=== PATIENT | female | born 1990 | race Caucasian/White ===

== ENCOUNTER 2017-01-09 17:36 | Emergency (ER) | payer OTHER ==
[2017-01-09] MEDS ORDERED: Nitroglycerin 0.4 MG TAB (25 Tab Bottle) ONE (17:48)
[2017-01-09 18:05] LABS: #Basophils 0.1 thou/uL (0.0-0.2); #Eosinphils 0.2 thou/uL (0.0-0.7); #Lymphocytes 2.2 thou/uL (1.20-3.40); #Neutrophils 8.5 thou/uL (1.40-6.50); %Basophils 0.7 % (0.0-1.0); %Lymphocytes 18.6 % (21.0-51.0); %Monocytes 8.7 % (0.0-10.0); %Neutrophils 70.1 % (42.0-75.0); Hemoglobin 13.7 g/dL (12.0-16.0); Mean Corpuscular HGB CONC 32.9 g/dL (32.0-36.0); Mean Corpuscular Hemoglobin 28.3 pg (27.0-31.0); Mean Platelet Volume 6.1 fL (7.4-10.4); Platelet Count 334 thou/uL (130-400); RBC Distribution Width 12.3 % (11.5-14.5); Red Blood Cell (RBC) Count 4.85 mill/uL (4.20-5.40)
[2017-01-09] MEDS ORDERED: Ketorolac Tromethamine 30 MG/ML VIAL ONE (18:06)
[2017-01-09] MEDS ORDERED: Ondansetron HCl/PF 4 MG/2 ML Vial ONE (18:06)
[2017-01-09 18:21] LABS: ALT (SGPT) 36 U/L (8-55); AST (SGOT) 32 U/L (5-34); Albumin 3.5 g/dL (3.5-5.0); Alkaline Phosphatase 121 U/L (40-150); Anion Gap 15 mmol/L (10-20); BUN (Urea Nitrogen) 17 mg/dL (7.0-18.7); Bilirubin, Total 0.3 mg/dL (0.2-1.2); Calc. Creatinine Clearance 0 mL/min (70-130); Calcium 9.5 mg/dL (7.8-10.44); Carbon Dioxide 24 mmol/L (22-29); Chloride 106 mmol/L (98-107); Estimated GFR-MDRD 79; Globulin 3.8 g/dL (2.4-3.5); Glucose 82 mg/dL (70-105); Potassium 4.1 mmol/L (3.5-5.1); Protein, Total 7.3 g/dL (6.0-8.3); Sodium 141 mmol/L (136-145)
[2017-01-09] MEDS ORDERED: Fentanyl 100 MCG/2 ML VIAL ONE (18:28)
[2017-01-09] MEDS ORDERED: Sodium Chloride 0.9% 100 ML ONE (19:00)
[2017-01-09] MEDS ORDERED: cefTRIAXone\\ROCEPHIN 2 GM VIAL ONE (19:00)
--- NOTE | 2017-01-09 19:52 | CT ---
CT OF THE ABDOMEN AND PELVIS WITHOUT CONTRAST: Date: 01-09-[address] of the abdomen and pelvis was done emergently for evaluation of a severe right flank pain. Axial slices were acquired then coronal reconstructions were done. No oral or IV contrast was used. FINDINGS: Severe right hydronephrosis and hydroureter are seen. The ureter is dilated all the way to the UVJ w here one sees a long 9 x 3 mm calcification. This is either a long distal ureteral calculus or possi erva several smaller ones right in a row at the UVJ. There may be a few tiny calculi remaining in the right kidney. None are seen in the left kidney, nor is there any obstruction on that side. The lung bases are clear. The liver, spleen, pancreas, gallbladder, adrenal glands, and abdominal ao rta appear normal within the limitations of a noncontrast study. The bowel is nondistended with no sign of obstruction. There is no sign of inflammatory change aroun d bowel. The appendix appears normal. No free air or free fluid was seen. The CT of the pelvis showed enlargement of the uterus consistent with the recent post conditi on. No free fluid, inflammatory changes, or other acute findings were present aside from the distal ureteral findings. IMPRESSION: Severe right hydronephrosis and hydroureter secondary to distal right ureteral calculus or calculi a t the right UVJ. Findings discussed with Dr. Barboza at 1829 on 01-09-17. POS: HOME
== END 2017-01-09 19:04 | disposition short-term general hospital (02) ==
LOC: BURERS 17:36
DX: N13.2 Hydronephrosis with renal and ureteral calculous obstruction (principal)
CPT/HCPCS: 36415; 74176; 80053; 85025; 96374; 96375; J0696; J1885; J2405; J3010; J7050